=== PATIENT | male | born 1980 | race African-American/Black ===

== ENCOUNTER 2025-05-06 09:11 | Emergency (ER) | payer MEDICAID ==
[~2025-05-06] VITALS: Ht 172.7 cm; Wt 82.0 kg
[2025-05-06 09:20] VITALS: O2SAT 99
[2025-05-06 09:42] LABS: CLARITY URINE Clear (CLEAR); COLOR URINE YELLOW (YELLOW); LEUKOCYTE ESTERASE URINE NEGATIVE (NEGATIVE); NITRITE URINE NEGATIVE (NEGATIVE); OCCULT BLOOD URINE NEGATIVE (NEGATIVE)
[2025-05-06 09:47] LABS: BASOPHILS % 0.6 % (0.0-2.0); EOSINOPHILS % 3.8 % (0.0-5.0); HEMATOCRIT. 33.8 % (42.0-52.0); HEMOGLOBIN. 10.6 g/dL (14.0-18.0); LYMPHOCYTES % 36.2 % (20.0-50.0); MEAN PLATELET VOLUME 7.8 fl (7.4-10.4); MONOCYTES % 6.6 % (2.0-8.0); NEUTROPHILS % 52.8 % (40.0-76.0); PLATELET 267 x1000/uL (130-400); RED BLOOD CELL COUNT 4.61 mill/uL (4.7-6.1); RED CELL DISTRIBUTION WIDTH 19.2 % (11.6-14.6)
[2025-05-06 09:57] LABS: INR 1.0
[2025-05-06 10:05] LABS: CREATININE 1.2 mg/dL (0.6-1.3); UREA NITROGEN BLOOD 6 mg/dL (9-23)
[2025-05-06] MEDS: MORPHINE SULFATE 4 MG/ML INJ (FOR IV/IM USE) IV ONE (13:11)
[2025-05-06] MEDS: ONDANSETRON HCL 4MG/2ML INJ IV ONE (13:11)
[2025-05-06] MEDS ORDERED: DOCU250C14 MT (13:30)
[2025-05-06] MEDS ORDERED: HYDR30CR80 TP (13:30)
[2025-05-06] MEDS ORDERED: LIDO5CRE26 TP (13:39)
[2025-05-06 14:49] VITALS: BP 151/92; PULSE 68; RESP 16; TEMP 36.9; O2SAT 100
== END 2025-05-06 14:50 | disposition home or self-care (01) ==
LOC: EDBD 09:11 → ER 09:43 → CANBEDREQ 13:58 → ER 14:50
DX: K64.3 Fourth degree hemorrhoids (principal); Z87.19 Personal history of other diseases of the digestive system; Z79.899 Other long term (current) drug therapy
CPT/HCPCS: 80048; 81003; 85025; 85610; 86850; 86900; 86901; 36415; 96374; 96375; 99284; J2270; Z7610 ×3; J2405